=== PATIENT | male | born 1990 | race African-American/Black ===

== ENCOUNTER 2023-10-09 00:33 | Emergency (ER) | payer SELFPAY ==
[~2023-10-09] VITALS: Ht 180.3 cm; Wt 82.0 kg
[2023-10-09 00:41] VITALS: O2SAT 100
[2023-10-09 01:10] VITALS: TEMP 98.9
[2023-10-09 01:47] VITALS: BP 122/69; PULSE 118; RESP 27
== END 2023-10-09 02:25 | disposition home or self-care (01) ==
LOC: ER 00:33
DX: F91.8 Other conduct disorders (principal); E16.2 Hypoglycemia, unspecified
CPT/HCPCS: 82962; 99283; Z7610